=== PATIENT | female | born 1935 | race Caucasian/White ===

== ENCOUNTER → 2023-11-27 11:04 | Outpatient (REF) | payer OTHER, SELFPAY | LOC: HWRCS 11:04 | PROVIDERS: ATTENDING PHYSICIAN Internal Medicine Cardiovascular Disease; FAMILY PHYSICIAN Internal Medicine Geriatric Medicine | DX: I44.2 Atrioventricular block, complete (principal); I35.1 Nonrheumatic aortic (valve) insufficiency; I35.0 Nonrheumatic aortic (valve) stenosis; I27.20 Pulmonary hypertension, unspecified | CPT/HCPCS: 93306 ==

== ENCOUNTER 2024-01-28 13:38 | Emergency (ER) | payer OTHER, SELFPAY ==
[2024-01-28 13:47] VITALS: BP 157/83
[2024-01-28 14:21] LABS: % Basophils 0.6 % (0-2); % Eosinophils 1.7 % (0-6); % Immature Granulocytes 0.2 % (0-0.5); % Lymphocytes 14.2 % (20.5-51.1); % Monocytes 6.8 % (1.7-9.3); % Neutrophils 76.5 % (42.2-75.2); Absolute Eosinophils 0.1 10^3/uL (0-0.7); Absolute Lymphocytes 0.9 10^3/uL (1.2-3.4); Absolute Monocytes 0.4 10^3/uL (0.1-0.6); Absolute Neutrophils 4.9 10^3/uL (1.4-6.5); Hematocrit 44.4 % (37.0-47.0); Mean Corp Hgb Conc. 33.8 g/dL (33.0-37.0); Mean Corpuscular Hgb 30.7 pg (27.0-31.0); Mean Corpuscular Volume 90.8 fL (81.0-99.0); Mean Platelet Volume 9.5 fL (7.4-10.4); Nucleated Red Blood Cells % 0 %; Platelet Count 151 10^3/uL (130-400); Red Blood Cell Count 4.89 10^6/uL (4.20-5.40); Red Cell Dist. Width 13.7 % (11.5-14.5); White Blood Cell Count 6.4 10^3/uL (4.8-10.8)
--- NOTE | 2024-01-28 14:22 | ED.GENMED ---
History of Present Illness
General
Chief Complaint: Cardiac Symptoms
Source: patient
Exam Limitations: none
Time Seen by Provider: 01/28/24 14:11
Nursing documentation reviewed up to this point in time: agreed with
History of Present Illness
History of Present Illness:
Patient to ED with complaint of chest heaviness intermittently for the past week. Denies any chest pain, SOB. No fever/chills, n/v/diaphoresis. Symptoms are worse on wakening. States she called PCP this AM and was advised by office to come to ED.
Saw cardilogist (Dr. Bangura) 1.5 weeks ago. No changes to care.
Past History
Past History
ED Past Medical History: Arrthythmia, COPD, HTN and Other (pancreatitis, pneumothorax, restrictive lung disease, heart block)
ED Past Surgical History: Cardiac (pacemaker), Cholecystectomy and Other (Pacemaker)
Patient has exhibited threatening behavior?: No
PSI?: No
Social History
Tobacco: Former smoker
Alcohol: None
Drug: None
Personal: Single
Living: alone
Employment: Retired
Review of Systems
Review of Systems
Allergies reviewed?: Yes
All Other Systems: ROS reviewed and negative except as documented in HPI and ROS
Constitutional: Reports no symptoms
EENT: Reports no symptoms
Respiratory: Reports other (chest heaviness)
Cardiac: Reports other (chest heaviness)
ABD/GI: Reports no symptoms
: Reports no symptoms
Musculoskeletal: Reports no symptoms
Skin: Reports no symptoms
Neurological: Reports no symptoms
Phy Exam
General Physical Exam
General Presentation: well appearing and no apparent distress
General age: appears stated age
General Skin: warm and dry
General Habitus: normal
General Mental: alert
Cardiovascular Exam
Cardiovascular Exam: regular rate/rhythm, no edema and systolic murmur
Pulmonary Exam
Pulmonary Exam: no respiratory distress, chest non tender and decreased breath sounds
Musculoskeletal Exam
Musculoskeletal Exam: full ROM, no edema and neuro vasc intact
Skin Exam
Skin Exam: normal color, warm/dry and no rash
Psychiatric Exam
Psychiatric Exam: normal mood/affect
Course
Orders/Labs/Results
Orders:
Orders
01/28/24 13:47
EKG [Electrocardiogram (*1)] Urgent
Reason for Study: Chest Pain
EKG- Treatment ONCE
01/28/24 14:08
IV Insert/Care/Rem.- Treatment PRN
01/28/24 14:10
Complete Blood Count/With Diff Urgent
Comprehensive Metabolic Panel Urgent
NT-proBNP Urgent
Comment: BNP ADDED ON BY FLOOR 2:20PM 01-28-24
Troponin I Urgent
01/28/24 14:19
CR Chest - 2 Views Urgent
Comment:
Reason For Exam: chest heaviness
01/28/24 14:20
Add On- LAB Urgent
Tests Added?: BNP
01/28/24 17:01
Troponin I Urgent
Abnormal Lab Results
01/28/24
14:10
Absolute Lymphs (auto) 0.9 L 10^3/uL
(1.2-3.4)
Neutrophils % 76.5 H %
(42.2-75.2)
Lymphocytes % 14.2 L %
(20.5-51.1)
Carbon Dioxide 32 H mmol/L
(22-30)
BUN 29 H mg/dl
(7-17)
Creatinine 1.3 H mg/dL
(0.6-1.0)
Glucose 116 H mg/dl
(70-99)
01/28/24 14:10
01/28/24 14:10
Vital Signs
Initial and Last Documented VS:
Initial Vital Signs
Pulse Resp BP Pulse Ox
77 17 157/83 97
01/28/24 13:47 01/28/24 13:47 01/28/24 13:47 01/28/24 13:47
Last Documented Vital Signs
Temp Pulse Resp BP Pulse Ox
98.0 F 75 19 145/73 95
01/28/24 13:53 01/28/24 17:30 01/28/24 17:30 01/28/24 17:00 01/28/24 17:30
*Radiology
Radiology exam reviewed: radiology read reviewed
*Pulse Oximetry
Patient hypoxic: no
*Critical Care Note
Total Time (30-74mins, 75-104mins- exclusive of procedures): Not Applicable
ED Attending Note
-
Portions of this chart may have been created with voice recognition software.� Occasional wrong word or��sound alike� substitutions may have occurred due to the inherent limitations of voice recognition software.
Discharge Plan
Departure
Patient Disposition: Home (Routine Discharge)
Date of Disposition: 01/28/24
Time of Disposition: 17:36
Patient with high blood pressure during this ER visit?: No
Condition: Good
Covid-19: Not Applicable
Discharge Problem:
Chest heaviness
Instructions: Chest Pain (DC)
Prescriptions:
No Action
tiotropium bromide [Spiriva with HandiHaler] 18 MCG capsule, w/inhalation device
18 mcg inhalation R DAILY
latanoprost 0.005 % drops
1 drp LEFT EYE HS
amlodipine 2.5 mg tablet
2.5 mg PO DAILY
Refresh Optive 0.5-0.9 % Drops
1 drp BOTH EYES BID
cholecalciferol (vitamin D3) [Vitamin D3] 25 mcg (1,000 unit) Tablet
25 mcg PO DAILY
acetaminophen [Tylenol] 325 mg Tablet
325 mg PO Q6HPRN PRN (Reason: mild pain)
famotidine [Pepcid] 20 mg Tablet
20 mg PO BID
vitamin B complex Tablet
1 tab PO DAILY
esomeprazole magnesium [Nexium] 40 mg capsule,delayed release(DR/EC)
40 mg PO DAILY Qty: 30 3RF
Referrals:
James Aguero MD [Family Provider] - Tomorrow
Activity Restrictions/Additional Instructions:
Return to the emergency department immediately for any changes in/worsening of your symptoms.
Interventions
Interventions:
*Risk Screen - Suicide Last Done: 01/28/24 14:01
*General Assessment Last Done: 01/28/24 14:01
*Neglect/Abuse Screening Last Done: 01/28/24 14:01
ED- Fall Risk Assessment Last Done: 01/28/24 15:24
*ED COVID-19 Vaccine History Last Done: 01/28/24 14:01
*Nursing Disposition Last Done: 01/28/24 17:48
ED- Pulmonary Assessment Last Done: 01/28/24 14:01
ED- Cardiac Assessment Last Done: 01/28/24 14:01
Discharge Date and Time
Discharge Date/Time: 01/28/24 17:54
Print Language: KITTITIAN
[2024-01-28 14:34] LABS: ALT (SGPT) 22 U/L (0-35); AST (SGOT) 34 U/L (14-36); Albumin 4.7 g/dl (3.5-5.0); Alkaline Phosphatase 77 U/L (38-126); Blood Urea Nitrogen 29 mg/dl (7-17); Calcium 9.6 mg/dl (8.4-10.2); Carbon Dioxide 32 mmol/L (22-30); Chloride 100 mmol/L (98-107); Glucose 116 mg/dl (70-99); Potassium 4.4 mmol/L (3.5-5.1); Sodium 136 mmol/L (135-145); Total Bilirubin 0.6 mg/dl (0.2-1.3); Total Protein 7.3 g/dl (6.3-8.2); eGFR 40.05
[2024-01-28 14:46] LABS: Troponin I < 0.012 ng/ml
[2024-01-28 15:07] LABS: NT-proBNP 880 pg/ml
[2024-01-28 15:23] VITALS: BP 139/71
[2024-01-28 16:17] VITALS: BP 127/71
[2024-01-28 17:00] VITALS: BP 145/73
[2024-01-28 17:35] LABS: Troponin I < 0.012 ng/ml
== END 2024-01-28 17:54 | disposition home or self-care (01) ==
LOC: EMR 13:38
PROVIDERS: Nurse Practitioner; EMERGENCY PHYSICIAN Emergency Medicine; FAMILY PHYSICIAN Internal Medicine Geriatric Medicine
DX: R07.89 Other chest pain (principal); J44.9 Chronic obstructive pulmonary disease, unspecified; I10 Essential (primary) hypertension; J98.4 Other disorders of lung; I45.9 Conduction disorder, unspecified; I48.91 Unspecified atrial fibrillation; Z95.0 Presence of cardiac pacemaker; Z90.49 Acquired absence of other specified parts of digestive tract; Z87.891 Personal history of nicotine dependence; Z91.040 Latex allergy status; Z88.8 Allergy status to other drugs, medicaments and biological substances; Z91.048 Other nonmedicinal substance allergy status
CPT/HCPCS: 99284; 93288; 71046; 80053; 83880; 84484; 85025; 93005

== ENCOUNTER → 2024-04-30 07:13 | Outpatient (REF) | payer OTHER, SELFPAY | LOC: DHCBC/DCA 07:13 | PROVIDERS: ATTENDING PHYSICIAN Internal Medicine Cardiovascular Disease; FAMILY PHYSICIAN Internal Medicine Geriatric Medicine | DX: I48.21 Permanent atrial fibrillation (principal); I35.1 Nonrheumatic aortic (valve) insufficiency; I50.32 Chronic diastolic (congestive) heart failure | CPT/HCPCS: 78452; 93017; A9500; J2785 ==

== ENCOUNTER → 2024-08-18 11:16 | Outpatient (REF) | payer OTHER, SELFPAY | LOC: HWRCS 11:16 | PROVIDERS: ATTENDING PHYSICIAN Internal Medicine Cardiovascular Disease; FAMILY PHYSICIAN Internal Medicine Geriatric Medicine | DX: I48.21 Permanent atrial fibrillation (principal) | CPT/HCPCS: 93306 ==

== ENCOUNTER 2024-08-28 20:32 | Observation (INO) | payer OTHER, SELFPAY ==
[2024-08-28] VITALS (20 sets, daily range): BP systolic 86–158; BP diastolic 54–93; BMI 19.7
[2024-08-28 11:36] LABS: Blood Urea Nitrogen 23 mg/dl (7-17); Carbon Dioxide 30 mmol/L (22-30); Chloride 102 mmol/L (98-107); Glucose 88 mg/dl (70-99); HDL Cholesterol 78 mg/dl; LDL Cholesterol, Calculated 105 mg/dl; Potassium 4.8 mmol/L (3.5-5.1); Sodium 139 mmol/L (135-145); Total Cholesterol 220 mg/dl (50-199); Triglyceride 185 mg/dl (10-149); Very Low Density Lipoprotein 37 mg/dl (0-30); eGFR 43.81
[2024-08-28 11:37] LABS: APTT 32.5 Sec (23.4-35.0)
[2024-08-28] MEDS: VANCOCIN 200 IV (14:40)
--- NOTE | 2024-08-28 16:06 | ITS.CL.PACE ---
Carpet Finishing Supervisor - Pacemaker Implant
Pacemaker Implant
Procedure Report:
Primary Queen'S Counsel: Ton Bangura MD
Procedure Date: 08/28/2024
Name of procedure:
1. Device Revision: Single Chamber Pacemaker
2. Pulse Generator Change
History:
See H&P for full details.
Patient is a pleasant 89-year-old female with a past medical history significant for permanent atrial fibrillation, complete heart block with single-chamber Munoz pacemaker, nonobstructive CAD, mild nonischemic cardiomyopathy EF 50%, mild AI, mild
, pulmonary hypertension, COPD, hypercholesterolemia, hypertension who presents for single-chamber pacemaker generator change. Pacemaker LINUS.
Methods:
After informed consent was obtained, the patient was brought to the EP laboratory in a postabsorptive, nonsedated state. Peripheral IV access was established. Prophylactic antibiotics were administered prior to incision. Continues ECG, blood
pressure, and pulse oximetry were initiated. Cardioversion patch electrodes were placed on the patient's chest and back. A grounding patch was applied to the skin. Sedation was administered by anesthesia services.
The left chest was prepared and draped in a sterile fashion. A 'time out' was called. Local anesthesia was injected in the subcutaneous tissue in the infraclavicular area. An incision was made into the chronic scar. With cautious attention to the
lead, the subcutaneous tissue was dissected the level of the device capsule. The capsule was opened, the device was explanted and disconnected from the lead. Due to patient's pacemaker dependency and lack of underlying rhythm, the old generator was
disconnected and the new generator was connected to the chronic lead. The lead was inspected and found to be free of visible defect. The lead/device was tested and found to have adequate pacing and sensing parameters, consistent with pre-procedure
measurements.
The pocket was flushed with antibiotic solution and hemostasis was assured. The generator was placed inside the pocket. The wound was closed with 3 running layers of absorbable suture and steri-strips were applied to the skin.
Following the procedure, the patient was taken to the recovery area in stable condition. No complications were noted.
Lead parameters and device programming:
- RA Lead (Munoz, model: 1688 T/52, SN# [id number]): Sensing dependent, Pacing threshold 1.0 V at 0.4 ms, Imp 450 ohm
- Device: Munoz pacemaker model: PM 1272, SN# [id number], programmed VVIR 70-120 ppm
- Explanted device: Munoz, 1210, serial #[id number]
Recommendations:
1. Discharge home when stable with instructions for site care
2. Follow-up will be arranged in our office 7-10 days post-discharge for incision check
Mansoor Oconnor DO, FACC
Clinical Cardiac Electrophysiology
Copy to: Ton Bangura MD; James Aguero MD
[2024-08-28] MEDS: TYLENOL 650 MG PO (16:42)
[2024-08-28] MEDS: ZOFRAN 4 MG IV (16:53)
--- NOTE | 2024-08-28 17:58 | PTCARENOTE ---
Patient vomited 250ml emesis. Ptaient still complaining of headache in back of head.
[2024-08-28 18:34] LABS: Glucose - Point of Care 87 mg/dl (70-99)
[2024-08-28] MEDS: NSS 500 IV (18:43)
--- NOTE | 2024-08-28 19:44 | PTCARENOTE ---
Patient states she 'feels extremely dizzy'. VSS stable. Patient refuses to walk. MD aware. Encouraged more fluids and to eat.
--- NOTE | 2024-08-28 20:45 | PTCARENOTE ---
Patient up OOB. Urinated in bathroom. Still complains of YANG. Would feel more comfortable to stay overnight. Report called to IVU.
--- NOTE | 2024-08-29 01:04 | PTCARENOTE ---
Received pt from [facility] into [facility]. Pt c/o headache and dizziness post procedure. Pt AAOx3 V paced on the monitor vss. Pt vomited sm amount of zhang color liquid. Daughter at bedside and updated with plan of care. Pt instructed to use call stevens prior
to ambulating. Call stevens within reach. Pt is now resting comfortably in bed.
[2024-08-29 04:16] VITALS: BP 117/62
[2024-08-29 04:26] VITALS: BMI 19.5
[2024-08-29 04:55] LABS: Hematocrit 40.5 % (37.0-47.0); Hemoglobin 13.5 g/dL (12.0-16.0); Mean Corp Hgb Conc. 33.3 g/dL (33.0-37.0); Mean Corpuscular Hgb 30.8 pg (27.0-31.0); Mean Corpuscular Volume 92.5 fL (81.0-99.0); Mean Platelet Volume 9.9 fL (7.4-10.4); Platelet Count 151 10^3/uL (130-400); Red Blood Cell Count 4.38 10^6/uL (4.20-5.40); Red Cell Dist. Width 13.2 % (11.5-14.5); White Blood Cell Count 5.4 10^3/uL (4.8-10.8)
[2024-08-29 05:14] LABS: Blood Urea Nitrogen 25 mg/dl (7-17); Calcium 9.3 mg/dl (8.4-10.2); Carbon Dioxide 28 mmol/L (22-30); Chloride 103 mmol/L (98-107); Estimated Creatinine Clearance 31 ml/min; Glucose 95 mg/dl (70-99); Potassium 4.9 mmol/L (3.5-5.1); Sodium 138 mmol/L (135-145); eGFR 48.63
--- NOTE | 2024-08-29 07:13 | W.PN.CARDCBS ---
Addendum entered and electronically signed by Wes Gonzales MD 08/29/24 11:27:
Patient seen, interviewed and examined by me.
Well-appearing, no acute distress
Regular rate and rhythm with normal S1 and S2, no S3 no S4. There is a grade 1/6 apical holosystolic murmur and no rubs. PMI is normally placed.
Lungs are clear to auscultation bilaterally without wheezes rales or rhonchi.
Abdomen soft nontender nondistended with normoactive bowel sounds
Extremities show trace pretibial edema bilaterally no clubbing or cyanosis.
Neurologic exam is grossly nonfocal.
Maintaing SR, HD sstable
OK for DC
Original Note:
Today's Communication / Plan
-
D/C to home today
[id number]
Impression / Plan
-
PCP: Dr. jean
Card: Dr. BONG Bangura
Impression:
Nausea and vomiting post-PPM generator change 08/28/24
s/p Munoz/[employer] SC PPM
Pacemaker dependent
Permanent A-fib
Not chronically anticoagulated by patient's choice
Mildly reduced, presumed nonischemic cardiomyopathy EF 50% by echo 08/18/2024
Nonobstructive CAD by cardiac cath 2011
Moderate aortic regurgitation
COPD
CKD 3a
Echo 08/18/24: EF 50%, apical septal and apical hypokinesis, possible septal contraction abnormality of the basal and mid segments, low normal contractility of the remaining segments, mild MR with severely dilated LA, mild peak/mean 23/14 mmHg and
ESTRELLA 2.0 cm SQ and moderate aortic regurgitation, normal RV with moderate TR and PAP 53 to 58 mmHg
Plan:
-Patient was seen in the office on 08/06/2024 and noted to be very close to LINUS and due to being pacemaker dependent was set up for an elective generator change on 08/28/2024. Following anesthesia the patient felt nauseous and vomited and was
admitted overnight.
-Patient is symptomatically improved 08/29/2024
-Labs stable including a Cre that was 1.2 on 08/28/2024 and is improved to 1.1 on 08/29/2024
-BP stable at 117/62 and outpatient dose of spironolactone 12.5 mg daily has been continued
-Patient with known permanent A-fib that is rate controlled and patient refuses OAC.
-EF has been 50% and Dr. Bangura has attempted GDMT as an outpatient which the patient has declined.
-Patient is stable for D/C to home
Progress Note - Watershed Coordinator
Subjective
Date of Service: August 29, 2024
No more nausea
Objective
Labs:
08/29/24 04:24
08/29/24 04:24
Labs
Hgb 13.5 g/dL (12.0-16.0) 08/29/24 04:24
Hct 40.5 % (37.0-47.0) 08/29/24 04:24
Plt Count 151 10^3/uL (130-400) 08/29/24 04:24
APTT 32.5 Sec (23.4-35.0) 08/28/24 10:58
Sodium 138 mmol/L (135-145) 08/29/24 04:24
Potassium 4.9 mmol/L (3.5-5.1) 08/29/24 04:24
BUN 25 mg/dl (7-17) H 08/29/24 04:24
Creatinine 1.1 mg/dL (0.6-1.0) H 08/29/24 04:24
Glucose 95 mg/dl (70-99) 08/29/24 04:24
Vital Signs and I&O:
Vital Signs
Temp Pulse Resp BP Pulse Ox
97.7 F 79 18 117/62 97
08/29/24 04:31 08/29/24 04:31 08/29/24 04:31 08/29/24 04:16 08/29/24 04:31
Vital Signs
Temp Pulse Resp BP Pulse Ox
97.7 F 79 18 117/62 97
08/29/24 04:31 08/29/24 04:31 08/29/24 04:31 08/29/24 04:16 08/29/24 04:31
Intake & Output
08/27/24 08/28/24 08/29/24 08/30/24
06:59 06:59 06:59 06:59
Intake Total 120 / 120
Balance 120 / 120
Physical Exam
Physical Exam
GEN: NAD. AAOx3
HEENT: MMM
LUNGS: RA. No audible wheeze.
CV: V paced on tele
ABD: ND
NEURO: Gross non-focal
--- NOTE | 2024-08-29 07:26 | W.DS.TRANS ---
DC Summary - Retail Merchandiser Technician
-
Discharge Instructions:
Sleep Apnea Risk Low
Discharge Diagnosis/Procedures Pacemaker generator change
Diet Regular
Activity Other activity
Additional Activity See attached sheet
Driving Restrictions No driving for 24 hours
Bathing Restrictions OK to Shower
Instructions:
Stand-Alone Forms: DC Inst - Implanted Device
Changes to Home Medications: No
Discharge Medications:
DC Medications w/original date entered in [employer]
tiotropium bromide 18 mcg capsule with inhalation device (Spiriva with HandiHaler) 18 mcg inhalation R DAILY Lung/breathing issues 06/16/19
carboxymethylcellulose 0.5 %-glycerin 0.9 % eye drops (Refresh Optive) 1 drp BOTH EYES BID Eye Condition 12/06/22
latanoprost 0.005 % eye drops 1 drp LEFT EYE HS Eye Condition 12/06/22
cholecalciferol (vitamin D3) 25 mcg (1,000 unit) tablet (Vitamin D3) 25 mcg PO DAILY Supplement 12/08/22
acetaminophen 325 mg tablet (Tylenol) 325 mg PO Q6HPRN PRN mild pain 04/27/23
famotidine 20 mg tablet (Pepcid) 20 mg PO BID GERD 04/27/23
vitamin B complex 1 tab PO DAILY Supplement 04/27/23
spironolactone 25 mg tablet 12.5 mg PO DAILY 08/28/24
Home Medication Changes
Pending Results: No
[2024-08-29 07:27] VITALS: BP 107/74
--- NOTE | 2024-08-29 11:01 | PTCARENOTE ---
Pt denies pain this AM. VSS. D/C instructions reviewed with Pt and her daughter. Pt expressed understanding.
== END 2024-08-29 11:15 | disposition home or self-care (01) ==
LOC: IVU 20:32
PROVIDERS: Nurse Practitioner; ADMITTING PHYSICIAN Internal Medicine Cardiovascular Disease; FAMILY PHYSICIAN Internal Medicine Geriatric Medicine
PROC: 0JH604Z Insertion of Pacemaker, Single Chamber into Chest Subcutaneous Tissue and Fascia, Open Approach (ICD-10-PCS; 2024-08-28)
PROC: 0JPT0PZ Removal of Cardiac Rhythm Related Device from Trunk Subcutaneous Tissue and Fascia, Open Approach (ICD-10-PCS; 2024-08-28)
DX: I48.21 Permanent atrial fibrillation (principal); I44.2 Atrioventricular block, complete; Z45.010 Encounter for checking and testing of cardiac pacemaker pulse generator [battery]; R11.2 Nausea with vomiting, unspecified; I35.1 Nonrheumatic aortic (valve) insufficiency; J44.9 Chronic obstructive pulmonary disease, unspecified; N18.31 Chronic kidney disease, stage 3a; I12.9 Hypertensive chronic kidney disease with stage 1 through stage 4 chronic kidney disease, or unspecified chronic kidney disease; I42.8 Other cardiomyopathies; Z79.01 Long term (current) use of anticoagulants; I25.10 Atherosclerotic heart disease of native coronary artery without angina pectoris; I27.20 Pulmonary hypertension, unspecified; Z79.899 Other long term (current) drug therapy
CPT/HCPCS: 33227; 80048; 80061; 82962; 85027; 85730; 93005; C1786; G0378